=== PATIENT | male | born 1990 | race Hispanic/Latino ===

== ENCOUNTER 2017-03-09 07:05 | Day surgery (SDC) | payer OTHER ==
[2017-03-07 10:13] VITALS: BMI 22.8
[2017-03-09] MEDS ORDERED: Lactated Ringer's 1,000 ML IV ONE (08:30)
[2017-03-09] MEDS ORDERED: ceFAZolin IV 1 gm in Dextrose 1 GM/50 ML BAG IVPB ONE (08:42)
[2017-03-09] MEDS ORDERED: Bupivacaine HCl 0.5% PF (10 ml) Inj ONE ×2 (08:43)
[2017-03-09] MEDS ORDERED: Propofol 10 mg/ml Inj (20 ML) ONE (08:48)
[2017-03-09] MEDS ORDERED: Midazolam 2 MG/2 ML VIAL ONE (08:48)
[2017-03-09] MEDS ORDERED: Dexamethasone 4 mg/1 ml IVP PRN (09:21)
[2017-03-09] MEDS ORDERED: HYDROmorphone 0.5 mg/0.5 ml ISec IVP PRN (09:21)
[2017-03-09] MEDS ORDERED: Lactated Ringer's 1,000 ML IV SCH (09:30)
[2017-03-09 11:32] VITALS: BP 131/79; PULSE 62; RESP 15; TEMP 97.6; O2SAT 97
--- NOTE | 2017-03-09 14:05 | OP ---
PROCEDURE DATE: 03/09/2017 PREOPERATIVE DIAGNOSIS: Sebaceous cysts of scrotum. POSTOPERATIVE DIAGNOSIS: Sebaceous cysts of scrotum. PROCEDURE: Excision of 2 sebaceous cysts of the scrotum. SURGEON: Dr. Duff. CCO: Dr. Samuel Woody. OPERATIVE DICTATION: In the holding area, the patient pointed out he noticed a second tiny sebaceous cyst just below the one previously seen in the office and I told him I would consider removing the s econd one as well. He was brought to the operating room, placed under conscious sedation, premedicat ed with 1 gram of Ancef IV and placed in the lithotomy position and prepped in the usual fashion. Incision was made directly over the larger sebaceous cyst and using sharp and blunt dissection, the c yst was removed in its entirety and sent to pathology. The underlying submucosa was cauterized and t hen the skin was closed using a 3-0 chromic suture. Prior to the incision, 0.5 Marcaine was injected subcutaneously around that lesion, perhaps 1 mL or 2 mL in total. After this was taken care of, we turned our attention to the second tiny cyst. An elliptical incision was made around that cyst. Aga in, after infiltration with Marcaine and the cyst was grasped with a grasper and it was excised. The cyst was removed in its entirety. A cautery was applied to 1 area in the subcutaneous and then this was closed with a single suture. Surgical glue was then placed over both of those sites as well. T he patient tolerated the procedure well. Martín Duff MD cc: [id number] TT: 03/09/2017 14:04:46 jn
== END 2017-03-09 11:15 | disposition home or self-care (01) ==
LOC: C.SDS 07:05
PROVIDERS: ATTEND Urology
DX: L72.3 Sebaceous cyst (principal)
CPT/HCPCS: 11200; 88307; J0690; J1170; J1885; J2250; J2704; J3010; J7120